=== PATIENT | male | born 1990 | race Caucasian/White ===

== ENCOUNTER 2018-02-25 12:00 | Day surgery (SDC) | payer OTHER ==
[~2018-02-25 12:00] MED LIST: HYDROCODONE/APAP 5/325 TAB PO SCH
[2018-02-25 13:46] LABS: PLATELET COUNT 362 10^3/uL (150-400)
--- NOTE | 2018-02-25 14:16 | EDPHY ---
H & P Smoking Status: Never smoked Time Seen by Provider: 02/25/18 13:40 HPI/ROS: Chief complaint. Abdominal pain HPI. Patient is a healthy 28-year-old male who presents with abdominal pain for 1 day. Last night he had generalized bloating and today the pain is in the right lower quadrant of his abdomen. He describes as sharp with some radiation to his back. It hurts with movement and better with lying still. No urinary symptoms. Nausea without vomiting diarrhea. No previous abdominal surgery. Last meal was last night and he had a cup of coffee this morning. ROS 10 systems were reviewed and negative with the exception of the elements mentioned in the history of present illness (Mitchell Mesa) Past Medical/Surgical History: Healthy (Mitchell Mesa) Social History: , nonsmoker, no alcohol (Mitchell Mesa) Physical Exam: General Appearance: Alert well-developed male mild distress vital signs are stable Eyes: Pupils equal and round no pallor or injection. ENT, Mouth: Mucous membranes are moist. Respiratory: There are no retractions, lungs are clear to auscultation. Cardiovascular: Regular rate and rhythm. Gastrointestinal: Abdomen is soft with tenderness at McBurney's point. No masses. Normal bowel sounds. Neurological: Awake and alert, sensory and motor exams grossly normal. Skin: Warm and dry, no rashes. Musculoskeletal: Neck is supple nontender. Extremities symmetrical, full range of motion. Psychiatric: Patient is oriented X 3, there is no agitation. (Mitchell Mesa) Constitutional: Initial Vital Signs Temperature (C) 37.1 C 02/25/18 12:08 Heart Rate 98 02/25/18 12:08 Respiratory Rate 16 02/25/18 12:08 Blood Pressure 151/90 H 02/25/18 12:08 O2 Sat (%) 96 02/25/18 12:08 O2 Delivery Mode Room Air Allergies/Adverse Reactions: shellfish derived Allergy (Verified 02/25/18 13:39) Narcotics Allergy (Mild, Uncoded 02/25/18 17:52) Other-Enter Comments Home Medications: Medication Instructions Recorded NK [No Known Home Meds] 02/25/18 Medical Decision Making - Diagnostics Imaging Results: Imaging Impressions Abdomen CT 02/25/18 14:20 Impression: 1. Normal CT abdomen and pelvis with contrast enhancement. 2. There are no secondary findings to suggest appendicitis. The appendix is upper limits of normal for size. The appendix is positioned right lateral abdomen at the umbilicus level. Findings discussed with Mitchell Mesa M.D. at 15:14 hour, 02/25/2018. Procedures: IV normal saline (Mitchell Mesa) ED Course/Re-evaluation: Patient remained stable (Mitchell Mesa) Differential Diagnosis: I believe the patient likely has appendicitis. CT is pending at this point in time. I have considered pyelonephritis and kidney stone as well (Mitchell Mesa ) Care Turn Over: Dr. Bautista at 1500 (Mitchell Mesa) 1518: Examined patient and discussed CT findings. His pain began around midnight this morning about 14 hours ago. He continues to have significant RLQ tenderness on exam. No acute appendicitis or other obvious etiology on CT. He has a normal WBC. Will consult with surgeon. 1622: Consulted with Dr. Betancur, surgeon. He will assess patient in the ED. Dr. Betancur will admit patient and perform appendectomy tonight. (Mychal Bautista) - Data Points Laboratory Results: Laboratory Results 02/25/18 13:27 02/25/18 13:27 02/25/18 02/25/18 13:27 13:27 WBC 9.19 10^3/uL 10^3/uL (3.80-9.50) RBC 5.37 10^6/uL 10^6/uL (4.40-6.38) Hgb 17.0 g/dL g/dL (13.7-17.5) Hct 48.6 % % (40.0-51.0) MCV 90.5 fL fL (81.5-99.8) MCH 31.7 pg pg (27.9-34.1) MCHC 35.0 g/dL g/dL (32.4-36.7) RDW 12.3 % % (11.5-15.2) Plt Count 362 10^3/uL 10^3/uL (150-400) MPV 9.4 fL fL (8.7-11.7) Neut % (Auto) 71.5 % % (39.3-74.2) Lymph % (Auto) 17.1 % % (15.0-45.0) [place] % (Auto) 8.7 % % (4.5-13.0) Eos % (Auto) 2.3 % % (0.6-7.6) Baso % (Auto) 0.2 % L % (0.3-1.7) Nucleat RBC Rel Count 0.0 % % (0.0-0.2) Absolute Neuts (auto) 6.57 10^3/uL H 10^3/uL (1.70-6.50) Absolute Lymphs (auto) 1.57 10^3/uL 10^3/uL (1.00-3.00) Absolute Monos (auto) 0.80 10^3/uL 10^3/uL (0.30-0.80) Absolute Eos (auto) 0.21 10^3/uL 10^3/uL (0.03-0.40) Absolute Basos (auto) 0.02 10^3/uL 10^3/uL (0.02-0.10) Absolute Nucleated RBC 0.00 10^3/uL 10^3/uL (0-0.01) Immature Gran % 0.2 % % (0.0-1.1) Immature Gran # 0.02 10^3/uL 10^3/uL (0.00-0.10) Sodium 141 mEq/L mEq/L (135-145) Potassium 4.4 mEq/L mEq/L (3.3-5.0) Chloride 106 mEq/L mEq/L (97-110) Carbon Dioxide 25 mEq/l mEq/l (22-31) Anion Gap 10 mEq/L mEq/L (6-14) BUN 11 mg/dL mg/dL (7-23) Creatinine 1.0 mg/dL mg/dL (0.7-1.3) Estimated GFR > 60 Glucose 92 mg/dL mg/dL (70-100) Calcium 10.7 mg/dL H mg/dL (8.5-10.4) Phosphorus 3.8 mg/dL mg/dL (2.5-4.5) Medications Given: Discontinued Medications Sodium Chloride (Ns) 1,000 mls @ 0 mls/hr IV EDNOW ONE; Wide Open PRN Reason: Protocol Stop: 02/25/18 14:21 Last Admin: 02/25/18 14:59 Dose: 1,000 mls Departure - Departure Disposition: [facility] Inpatient Acute Clinical Impression: Acute appendicitis Qualifiers: Acute appendicitis type: with localized peritonitis Appendicitis gangrene presence: unspecified whether gangrene present Appendicitis perforation presence : without perforation Appendicitis abscess presence: without abscess Qualified Code(s): K35.30 - Acute appendicitis with localized peritonitis, without perforation or gangrene Condition: Fair
[2018-02-25] MEDS ORDERED: NS 1,000 ML IV ONE (14:20)
[2018-02-25] MEDS ORDERED: IOPAMIDOL (ISOVUE-300) 100 ML BTL ONE (14:38)
[2018-02-25] MEDS ORDERED: cefOXitin SODIUM 1 GM in NS 50 ML IV ONE (17:10)
[2018-02-25] MEDS ORDERED: LR 1,000 ML IV ONE (18:54)
[2018-02-25] MEDS ORDERED: BUPIVACAINE 0.5% 30 ML SDV ONE (19:58)
[2018-02-25] MEDS ORDERED: ceFAZolin 1 GM VIAL ONE (20:00)
[2018-02-25] MEDS ORDERED: HEPARIN 1000 UNIT/1 ML MDV ONE ×2 (20:01→20:08)
[2018-02-25] MEDS ORDERED: fentaNYL 100 MCG/2 ML INJ ONE ×2 (20:15)
[2018-02-25] MEDS ORDERED: PROPOFOL 200 MG/20 ML VIAL ONE (20:15)
[2018-02-25] MEDS ORDERED: ROCURONIUM 50 MG/5 ML VIAL ONE (20:16)
[2018-02-25] MEDS ORDERED: ONDANSETRON 4 MG/2 ML VIAL ONE (20:16)
[2018-02-25] MEDS ORDERED: SUGAMMADEX SODIUM 200 MG/2 ML VIAL IVP ONE (20:16)
[2018-02-25] MEDS ORDERED: DEXAMETHASONE 4 MG/ML VIAL ONE (20:16)
[2018-02-25] MEDS ORDERED: LIDOCAINE 2% 5 ML SDV ONE (20:19)
[2018-02-25] MEDS ORDERED: SUCCINYLCHOLINE CHLORIDE 200 MG/10 ML SYR IVP ONE (20:20)
--- NOTE | 2018-02-25 20:46 | PDANEPAE ---
ANE History of Present Illness lap appy ANE Past Medical History - Cardiovascular History Hx Hypertension: No Hx Arrhythmias: No Hx Chest Pain: No Hx Coronary Artery / Peripheral Vascular Disease: No Hx CHF / Valvular Disease: No Hx Palpitations: No - Pulmonary History Hx COPD: No Hx Asthma/Reactive Airway Disease: No Hx Recent Upper Respiratory Infection: No Hx Oxygen in Use at Home: No Hx Sleep Apnea: No - Endocrine History Hx Diabetes: No Hypothyroid: No Hyperthyroid: No Obesity: no ANE Review of Systems Review of systems is: negative Review of Systems: - Exercise capacity Exercise capacity: >=4 METS ANE Patient History - Allergies Allergies/Adverse Reactions: shellfish derived Allergy (Verified 02/25/18 13:39) Narcotics Allergy (Mild, Uncoded 02/25/18 17:52) Other-Enter Comments - Home Medications Home medications: home medication list seen and reviewed Home Medications: NK [No Known Home Meds] 02/25/18 [Last Taken Unknown] - NPO status NPO Since - Liquids (Date): 02/25/18 NPO Since - Liquids (Time): 10:30 NPO Since - Solids (Date): 02/24/18 NPO Since - Solids (Time): 23:30 - Anes Hx Anes Hx: no prior problems - Smoking Hx Smoking Status: Never smoked ANE Labs/Vital Signs - Labs Result Diagrams: 02/25/18 13:27 02/25/18 13:27 - Vital Signs Blood Pressure: 121/75 Heart Rate: 83 Respiratory Rate: 18 O2 Sat (%): 94 Height: 182.88 cm Weight: 97.522 kg ANE Physical Exam - Airway Neck exam: FROM Mallampati Score: Class 1 Mouth exam: normal dental/mouth exam - Pulmonary Pulmonary: no respiratory distress - Cardiovascular Cardiovascular: regular rate and rhythym - ASA Status ASA Status: I, E ANE Anesthesia Plan Anesthesia Plan: general endotracheal anesthesia Urgent/Emergent Case: Sara donnelly completed preop but documented later for safe timely pt care
--- NOTE | 2018-02-25 20:46 | POSTANESTH ---
Post Anesthetic Evaluation Cardiovascular Status: Normal, Stable Respiratory Status: Normal, Stable Level of Consciousness/Mental Status: Can Participate in Eval, Alert and Oriented Pain Control: Adequate, Prn Tx Ordered Nausea/Vomiting Control: Adequate, Prn Tx Ordered Complications Possibly Related to Anesthesia: None Noted
[2018-02-25] MEDS ORDERED: PROMETHAZINE HCL 25 MG/ML INJ IVP PRN (21:05)
[2018-02-25] MEDS ORDERED: ACETAMINOPHEN 500 MG TAB PO PRN (21:05)
[2018-02-25] MEDS ORDERED: ONDANSETRON 4 MG/2 ML VIAL IVP PRN (21:05)
[2018-02-25] MEDS ORDERED: oxyCODONE IR 5 MG TAB PO PRN (21:05)
[2018-02-25] MEDS ORDERED: HYDROmorphONE/DILAUDID 2 MG/ML INJ IVP PRN (21:05)
[2018-02-25] MEDS ORDERED: METOCLOPRAMIDE 10 MG/2 ML VIAL IVP PRN (21:05)
[2018-02-25] MEDS ORDERED: NALOXONE HCL 0.4 MG/ML INJ IVP PRN (21:05)
[2018-02-25] MEDS ORDERED: HYDROCODONE/APAP 5/325 TAB PO PRN ×2 (21:05→22:01)
[2018-02-25] MEDS ORDERED: ALBUTEROL 3 ML DEYVIAL IH PRN (21:05)
[2018-02-25] MEDS ORDERED: LR 500 ML IV PRN (21:05)
[2018-02-25] MEDS ORDERED: fentaNYL 100 MCG/2 ML INJ IVP PRN (21:05)
[2018-02-25] MEDS ORDERED: ACETAMINOPHEN 500 MG TAB ONE (21:34)
--- NOTE | 2018-02-25 21:58 | POSTOPPROG ---
Post Op Note Date of Operation: 02/25/18 Surgeon: Gregorio Betancur Anesthesiologist: BRENDON Anesthesia: GET(General Endotracheal) Pre-op Diagnosis: ACUTE APPE Post-op Diagnosis: SAME Indication: PAIN Procedure: LAP APPE Findings: EARLY THICKENED APPENDICITIS Inf/Abcess present in the surg proc area at time of surgery?: Yes Depth: Organ Space EBL: Minimal Specimen(s): APPENDIX
[2018-02-25] MEDS ORDERED: ONDANSETRON DISINTEGRATING 4 MG TAB PO PRN (22:01)
[2018-02-25] MEDS ORDERED: HYDROmorphONE/DILAUDID 1 MG/ML INJ IVP PRN (22:01)
[2018-02-25] MEDS ORDERED: D5W 1/2 NS W/ 20 KCl/L 1,000 ML IV SCH (22:15)
[2018-02-25 23:21] VITALS: BP 138/92
--- NOTE | 2018-02-27 14:06 | GOP ---
DATE OF OPERATION: 02/25/2018 SURGEON: Gregorio Betancur MD PREOPERATIVE DIAGNOSIS: Acute appendicitis. POSTOPERATIVE DIAGNOSIS: Acute appendicitis. PROCEDURE PERFORMED: Laparoscopic appendectomy. FINDINGS: Patient was found to have a thickened enlarged appendix but only minimal periappendiceal i nflammation. DESCRIPTION OF PROCEDURE: The patient was taken to the operating room where he received a satisfacto ry general endotracheal anesthesia. He was placed in the supine position, prepped and draped in the usual sterile fashion. A periumbilical incision was made. A Veress needle inserted. Pneumoperitone um was established. A trocar was introduced. Laparoscope introduced. Good visualization was obtain ed. Two other trocars were placed in the lower abdomen under direct vision. The appendix was identi fied. It was elevated up. It was quite long and thickened. The mesoappendix was divided with the H armonic Scalpel until the base was skeletonized. It was then divided with Endo-ANGELA stapler and place d in a specimen bag and extracted through the upper midline port site. The suture line appeared to b e hemostatic. There were no other major abnormalities seen in the abdomen. No evidence of Crohn dis ease or Meckel diverticulum and no signs of cholecystitis or any other major abdominal finding. He t olerated the procedure well, was taken to the recovery room in good condition. There were no complic ations. /[id number]/MODL
--- NOTE | 2018-02-27 18:18 | GCON ---
DATE OF CONSULTATION: 02/25/2018 HISTORY OF PRESENT ILLNESS: The patient is a 28-year-old male who is admitted to the ER with right l ower quadrant pain. It has been persistent for most of the day. It hurts with moving around or coug harrison or sneezing. He has been afebrile. He has had some nausea but no vomiting or diarrhea. He has been anorexic. Evaluation in the ER revealed his white count to be upper limits of normal at 9.5. A CT scan reveals an enlarged appendix, but no definite inflammatory changes. PAST MEDICAL HISTORY: Negative for any major hospitalizations or major surgeries. ALLERGIES: None to medications. MEDICATIONS: No home medications. REVIEW OF SYSTEMS: Negative on a full 10-point review except as related to the HPI. SOCIAL HISTORY: Nonsmoker. FAMILY HISTORY: Noncontributory. PHYSICAL EXAMINATION: GENERAL: Alert, healthy 28-year-old male in no acute distress. VITAL SIGNS: Afebrile. HEAD and NECK: Negative for icterus, adenopathy, or oral lesions. CHEST: Clear and sym metric. CARDIAC: Regular rhythm without murmurs. ABDOMEN: Soft. Tender over McBurney point, with some guarding and mild rebound. There are no obvious hernias. He is overweight, with positive zachary l sounds. GENITALIA: Normal. EXTREMITIES: Reveal full range of motion with full pulses. NEURO: Physiologic and symmetric. PSYCH: Alert, oriented, and cooperative. IMPRESSION: Possible early acute appendicitis. The risks and options have been fully discussed with the patient. He wishes to proceed with laparoscopic appendectomy rather than observation or treatme nt with antibiotics alone. PLAN: Laparoscopic appendectomy. Again, the risks and options have been fully discussed. /[id number]/MODL
== END 2018-02-25 23:30 | disposition home or self-care (01) ==
LOC: FSGY 17:06 → UNDOADMOB 17:06 → UNDODISOB 23:30 → FSGY 23:30
PROVIDERS: ATTEND Surgery
PROC: 0DTJ4ZZ Resection of Appendix, Percutaneous Endoscopic Approach (ICD-10-PCS; principal; 2018-02-25 18:30)
DX: K35.30 Acute appendicitis with localized peritonitis, without perforation or gangrene (principal)
CPT/HCPCS: 96374; J0330; J0690; J0694; J1100; J2405; J2704; J3010; Q9967